=== PATIENT | female | born 1945 | race Caucasian/White ===

== ENCOUNTER 2019-05-17 15:01 | Inpatient (IN) | payer OTHER ==
[~2019-05-17] VITALS: Ht 165.1 cm; Wt 74.5 kg
[2019-05-17] MEDS ORDERED: HYDR-2510 PO (15:31)
[2019-05-17] MEDS ORDERED: LOSA100T32 PO (15:31)
[2019-05-17] MEDS ORDERED: ATOR40TA70 PO (15:31)
[2019-05-17] MEDS ORDERED: LISI-604 PO (15:31)
[2019-05-17 16:43] LABS: BASOPHILS % 0.4 % (0.0-2.0); HEMATOCRIT. 39.5 % (36.0-48.0); HEMOGLOBIN. 14.2 g/dL (12.0-16.0); LYMPHOCYTES % 13.5 % (20.0-50.0); MEAN CORPUSCULAR HEMOGLOBIN 30.2 pg (28.0-32.0); MEAN CORPUSCULAR VOLUME 83.8 fL (81.0-99.0); MEAN PLATELET VOLUME 7.4 fl (7.4-10.4); MONOCYTES % 3.7 % (2.0-8.0); NEUTROPHILS % 81.4 % (40.0-76.0); PLATELET 290 x1000/uL (130-400); RED BLOOD CELL COUNT 4.71 mill/uL (4.2-5.4); RED CELL DISTRIBUTION WIDTH 12.7 % (11.6-14.6)
[2019-05-17 16:44] LABS: CHLORIDE 92 mEq/L (98-107)
[2019-05-17 16:48] LABS: ETHANOL BLOOD < 10 mg/dL
[2019-05-17] MEDS ORDERED: SODIUM CHLORIDE 0.9% 1,000 ML IV ONE (17:19)
[2019-05-17 17:43] LABS: CLARITY URINE TURBID (CLEAR); COLOR URINE YELLOW (YELLOW); KETONES URINE 1+ (NEGATIVE); LEUKOCYTE ESTERASE URINE NEGATIVE (NEGATIVE); NITRITE URINE NEGATIVE (NEGATIVE); OCCULT BLOOD URINE NEGATIVE (NEGATIVE); PH URINE 7.5 (4.5-8.0); PROTEIN URINE NEGATIVE (NEGATIVE); SPECIFIC GRAVITY URINE 1.014 (1.005-1.030); UROBILINOGEN URINE 0.2 E.U./dL (0.2-1.0)
[2019-05-17 18:06] LABS: *COCAINE SCREEN URINE NEGATIVE (NEGATIVE); METHADONE URINE SCREEN NEGATIVE (NEGATIVE); OPIATES URINE SCREEN NEGATIVE (NEGATIVE); PHENCYCLIDINE URINE SCREEN NEGATIVE (NEGATIVE)
[2019-05-17 18:07] LABS: *AMPHETAMINES SCREEN URINE NEGATIVE (NEGATIVE); *BARBITURATES SCREEN URINE NEGATIVE (NEGATIVE); *BENZODIAZEPINES SCREEN URINE NEGATIVE (NEGATIVE); CANNABINOID URINE SCREEN NEGATIVE (NEGATIVE)
[2019-05-17] MEDS ORDERED: ACETAMINOPHEN 500MG TABLET PO ONE (18:15)
[2019-05-17] MEDS ORDERED: PROCHLORPERAZINE 10MG/2ML VIAL IV PRN (18:15)
[2019-05-17] MEDS ORDERED: ONDANSETRON HCL 4MG/2ML INJ IV NR (21:30)
[2019-05-17] MEDS ORDERED: HYDRALAZINE 20MG/ML VIAL IV NR (21:30)
[2019-05-17] MEDS ORDERED: MORPHINE SULFATE 2 MG/ML CPJ (NOT FOR IM USE) IV NR (21:30)
[2019-05-17 22:40] VITALS: BP 177/76
[2019-05-17] MEDS ORDERED: LEVO50TA PO (23:04)
[2019-05-18] MEDS ORDERED: POTASSIUM CHLORIDE INJ 40 MEQ in DEXT 5% WATER 250 ML IV NR (02:00)
[2019-05-18] MEDS: DEXT 5%/0.45% NACL 1000ML 1,000 ML IV SCH ×2 (02:20→17:40)
[2019-05-18 04:00] VITALS: BP 150/72
[2019-05-18 08:00] VITALS: BP 178/74
[2019-05-18] MEDS: ENOXAPARIN 40MG/0.4ML SYR SUBCUT SCH (08:13)
[2019-05-18] MEDS: ONDANSETRON HCL 4MG/2ML INJ IV PRN ×3 (08:14→22:34)
[2019-05-18] MEDS: HYDRALAZINE 20MG/ML VIAL IV PRN ×3 (08:14→22:39)
[2019-05-18] MEDS: MORPHINE SULFATE 2 MG/ML CPJ (NOT FOR IM USE) IV PRN ×2 (10:25→16:14)
[2019-05-18 12:09] VITALS: BP 166/69
[2019-05-18 15:00] VITALS: BP 137/81
[2019-05-18 17:44] LABS: BASOPHILS % 0.3 % (0.0-2.0); HEMATOCRIT. 39.8 % (36.0-48.0); MEAN CORPUSCULAR HEMOGLOBIN 29.9 pg (28.0-32.0); MEAN CORPUSCULAR VOLUME 84.9 fL (81.0-99.0); MEAN PLATELET VOLUME 7.3 fl (7.4-10.4); MONOCYTES % 3.9 % (2.0-8.0); NEUTROPHILS % 85.8 % (40.0-76.0); PLATELET 331 x1000/uL (130-400); RED BLOOD CELL COUNT 4.69 mill/uL (4.2-5.4)
[2019-05-18 17:48] LABS: CHLORIDE 95 mEq/L (98-107)
[2019-05-18 20:00] VITALS: BP 153/48
[2019-05-19] VITALS: BP 139/56
[2019-05-19] MEDS: KETOROLAC 15MG/ML VIAL IV PRN ×2 (00:21→06:57)
[2019-05-19] MEDS ORDERED: ACETAMINOPHEN 325MG TABLET PO PRN (00:30)
[2019-05-19] MEDS ORDERED: LORAZEPAM 2MG/ML CPJ IV PRN (00:30)
[2019-05-19] MEDS ORDERED: HYDRALAZINE 20MG/ML VIAL IV PRN (00:30)
[2019-05-19] MEDS ORDERED: MECLIZINE 25MG TABLET PO PRN (00:30)
[2019-05-19] MEDS ORDERED: DIPHENHYDRAMINE 50MG/ML VIAL IV PRN (00:30)
[2019-05-19] MEDS ORDERED: CLONIDINE 0.1MG TABLET PO PRN (00:30)
[2019-05-19 04:00] VITALS: BP 135/56
[2019-05-19] MEDS: SODIUM CHLORIDE 0.9% 1,000 ML IV SCH ×2 (06:00→15:20)
[2019-05-19 06:36] LABS: CHLORIDE 97 mEq/L (98-107)
[2019-05-19] MEDS: ONDANSETRON HCL 4MG/2ML INJ IV PRN ×2 (06:56→12:40)
[2019-05-19 08:00] VITALS: BP 152/64
[2019-05-19] MEDS: FAMOTIDINE 20MG/2ML VIAL IV SCH (09:37)
[2019-05-19] MEDS: ENOXAPARIN 40MG/0.4ML SYR SUBCUT SCH (09:39)
[2019-05-19] MEDS ORDERED: BISACODYL 10MG SUPP PR SCH (11:00)
[2019-05-19] MEDS ORDERED: MECLIZINE 25MG TABLET PO SCH (11:15)
[2019-05-19] MEDS ORDERED: ACETAMINOPHEN 325MG TABLET PO SCH (11:15)
[2019-05-19 12:00] VITALS: BP 145/66
[2019-05-19 15:48] LABS: CHLORIDE 97 mEq/L (98-107)
[2019-05-19 16:00] VITALS: BP 151/61
[2019-05-19] MEDS ORDERED: POTASSIUM CHLORIDE 20MEQ TABLET SR PO NR (16:45)
[2019-05-19 20:00] VITALS: BP 111/81
[2019-05-20] VITALS: BP_SYST 76
[2019-05-20 04:00] VITALS: BP 102/68
[2019-05-20] MEDS: SODIUM CHLORIDE 0.9% 1,000 ML IV SCH ×2 (04:53→09:29)
[2019-05-20 06:55] LABS: CHLORIDE 104 mEq/L (98-107)
[2019-05-20] MEDS: ENOXAPARIN 40MG/0.4ML SYR SUBCUT SCH (09:13)
[2019-05-20] MEDS: FAMOTIDINE 20MG/2ML VIAL IV SCH (09:13)
[2019-05-20] MEDS: KETOROLAC 15MG/ML VIAL IV PRN (09:24)
[2019-05-20] MEDS ORDERED: FAMO-135 MT (14:32)
[2019-05-20] MEDS ORDERED: ONDA4TAB5 MT (14:32)
[2019-05-20 14:34] VITALS: BP 148/53
== END 2019-05-20 19:12 | disposition home or self-care (01) | DRG 391 ==
LOC: ER 15:33 → 6WST 18:31 → EDBEDREQTM 18:52 → EDBEDREQ 18:52 → ENRESERV 20:40 → 6WST 22:33
PROVIDERS: ADMIT Internal Medicine; ATTEND Internal Medicine
DX: K52.9 Noninfective gastroenteritis and colitis, unspecified (principal); I50.33 Acute on chronic diastolic (congestive) heart failure; E87.1 Hypo-osmolality and hyponatremia; E03.9 Hypothyroidism, unspecified; E11.9 Type 2 diabetes mellitus without complications; E78.00 Pure hypercholesterolemia, unspecified; E78.5 Hyperlipidemia, unspecified; E87.6 Hypokalemia; E87.8 Other disorders of electrolyte and fluid balance, not elsewhere classified; I11.0 Hypertensive heart disease with heart failure; Z86.73 Personal history of transient ischemic attack (TIA), and cerebral infarction without residual deficits; Z79.899 Other long term (current) drug therapy; T50.2X5A Adverse effect of carbonic-anhydrase inhibitors, benzothiadiazides and other diuretics, initial encounter
CPT/HCPCS: 36415; 70551; 71045; 74021; 76700; 80048; 80305; 80320; 81003; 82533; 82962; 83036; 83735; 83880; 84439; 84443; 84484; 93005; 93306; 99285; J0360; J1650; J1885; J2270; J2405; J3480; J3490; J7030; J7060; J8597; G0480

== ENCOUNTER 2020-11-01 10:15 | Emergency (ER) | payer MEDICAID, OTHER ==
[~2020-11-01] VITALS: Ht 162.6 cm; Wt 71.0 kg
[~2020-11-01 10:15] MED LIST: ATOR40TA70 PO; FAMO-135 MT; LEVO50TA PO; LISI20TA31 PO; LOSA100T32 PO; ONDA4TAB5 MT
[2020-11-01 10:18] VITALS: BP 192/88
[2020-11-01] MEDS ORDERED: ACETAMINOPHEN 325MG TABLET PO STA (10:51)
[2020-11-01 11:32] LABS: BASOPHILS % 0.7 % (0.0-2.0); EOSINOPHILS % 4.6 % (0.0-5.0); HEMATOCRIT. 40.8 % (36.0-48.0); HEMOGLOBIN. 14.1 g/dL (12.0-16.0); LYMPHOCYTES % 16.6 % (20.0-50.0); MEAN CORPUSCULAR VOLUME 86.9 fL (81.0-99.0); MEAN PLATELET VOLUME 6.9 fl (7.4-10.4); MONOCYTES % 3.9 % (2.0-8.0); NEUTROPHILS % 74.2 % (40.0-76.0); PLATELET 351 x1000/uL (130-400); RED CELL DISTRIBUTION WIDTH 13.1 % (11.6-14.6)
[2020-11-01 11:35] LABS: CLARITY URINE CLEAR (CLEAR); COLOR URINE YELLOW (YELLOW); KETONES URINE NEGATIVE (NEGATIVE); LEUKOCYTE ESTERASE URINE NEGATIVE (NEGATIVE); NITRITE URINE NEGATIVE (NEGATIVE); OCCULT BLOOD URINE NEGATIVE (NEGATIVE); PROTEIN URINE NEGATIVE (NEGATIVE); SPECIFIC GRAVITY URINE 1.007 (1.005-1.030); UROBILINOGEN URINE 0.2 E.U./dL (0.2-1.0)
[2020-11-01 11:39] LABS: CHLORIDE 105 mEq/L (98-107)
[2020-11-01 11:41] LABS: INR 0.9; PROTHROMBIN TIME 10.2 sec (9.6-11.0)
[2020-11-01] MEDS ORDERED: IOHEXOL-300 100 ML BOTTLE ONE ×2 (13:59→16:28)
[2020-11-01] MEDS ORDERED: IBUP-2029 MT (14:09)
[2020-11-01] MEDS ORDERED: CIPR500S3 PO (14:09)
== END 2020-11-01 14:40 | disposition home or self-care (01) ==
LOC: ER 10:27
DX: K57.92 Diverticulitis of intestine, part unspecified, without perforation or abscess without bleeding (principal); E11.9 Type 2 diabetes mellitus without complications; E78.00 Pure hypercholesterolemia, unspecified; I10 Essential (primary) hypertension; E05.90 Thyrotoxicosis, unspecified without thyrotoxic crisis or storm; Z79.899 Other long term (current) drug therapy
CPT/HCPCS: 36415; 74177; 80053; 81003; 83690; 85025; 85610; 99285; Q9967; Z7610